=== PATIENT | male | born 1965 | race Two or more races ===

== ENCOUNTER → 2016-12-13 | Outpatient (CLI) | payer BC | END | disposition home or self-care (01) | LOC: PCVCCLINIC 12:00 | PROVIDERS: ATTEND Internal Medicine | DX: I25.10 Atherosclerotic heart disease of native coronary artery without angina pectoris (principal); E78.5 Hyperlipidemia, unspecified; R10.13 Epigastric pain; R74.8 Abnormal levels of other serum enzymes; E11.9 Type 2 diabetes mellitus without complications; I10 Essential (primary) hypertension; Z95.1 Presence of aortocoronary bypass graft; Z79.82 Long term (current) use of aspirin; Z79.84 Long term (current) use of oral hypoglycemic drugs; Z95.5 Presence of coronary angioplasty implant and graft; Z87.891 Personal history of nicotine dependence | CPT/HCPCS: G0463 ==

== ENCOUNTER → 2017-11-09 | Outpatient (CLI) | payer BC | END | disposition home or self-care (01) | LOC: PCVCIMAG 12:55 | DX: I10 Essential (primary) hypertension (principal); R09.89 Other specified symptoms and signs involving the circulatory and respiratory systems; I25.10 Atherosclerotic heart disease of native coronary artery without angina pectoris; R06.09 Other forms of dyspnea | CPT/HCPCS: 93325; 93351; 93880 ==

== ENCOUNTER → 2018-12-19 | Outpatient (CLI) | payer BC ==
--- NOTE | 2018-12-19 15:50 | PCVCIMAG ---
APPROVED REPORT Study performed: 12/19/2018 14:50:23 Exam: Stress Echocardiogram Indication: CAD s/p PCI, Chest pain , neck pain Patient Location: Echo lab Stress Nurse: Alma Oconnor RN Room #: 2 Status: routine Ht: 5 ft 7 in HR: 87 bpm BP: 122/84 mmHg Rhythm: NSR Medical History Medical History: CAD s/p stent, HTN, Hyperlipidemia Cardiac Risk Factors: HTN, Hyperlipidemia, DM Previous Cardiac Procedures: PCI Pretest Chest Pain Characteristics: No chest pain Exercise History: Physically active Procedure The patient underwent an Exercise Stress Test using the Karsten Protocol. Blood pressure, heart rate, and EKG were monitored. An Echocardiogram was performed by gear technician in four stages in quad fashion. At peak stress, four selected images were obtained and placed side by side with resting images for comparison. Stress Test Details Stress Test: Exercise stress testing was performed using a Karsten protocol. HR Resting HR: 87 bpmMax Heart Rate (APMHR): 167 bpm Max HR Achieved: 153 bpmTarget HR (85% APMHR): 141 bpm % of APMHR: 91 Recovery HR: 109 bpm HR response to stress: Normal HR response to stress BP Resting BP: 122/84 mmHg Max BP: 156/78 mmHg Recovery BP: 122/80 mmHg BP response to stress: Normal blood pressure response to stress. ECG Resting ECG: Sinus Rhythm, NSSTT changes Stress ECG: Sinus Rhythm ST Change: Non-ischemic Maximum ST Deviation: -0.80 mm Arrhythmia: rare pvcs Recovery ECG: Sinus Rhythm Recovery ST Change: Non-ischemic Recovery ST Deviation: -0.90 mm Recovery Arrhythmia: None Clinical Reason for Termination: Maximal effort Stress Symptoms: neck pain Exercise duration: 10 min 02 sec Highest Stage Achieved: Stage 4: 4.2 mph at 16% grade. Exercise capacity: 13.4 METs Overall Exercise Capacity for Age: Good Scale: Active Angina Score: Non-Limiting No complications. Stress ECG Conclusion The patient exercised according to the KARSTEN protocol for 10:02 mins; achieving a work level of 13.4 METS. The resting heart rate of 87 bpm carlos to a maximum heart rate of 153 bpm. This value represent 91% of the maximal, age-predicted heart rate. The resting blood pressure of 122/84 mmHg, carlos to a maximum blood pressure of 156/78 mmHg. The exercise test was stopped due to fatigue. Alan Treadmill Score is 10.0 which is Low risk. Pre-Stress Echo The resting Echocardiogram showed normal left ventricular contractility with an estimated Ejection Fraction of about 55-60%. Normal wall motion in all segments on baseline images. Post-Stress Echo The stress Echocardiogram showed normal left ventricular contractility with an estimated Ejection Fraction of about 65-70%. Normal augmentation of wall motion in all segments on post stress images. Clinical No clinical or ECG evidence for ischemia. Conclusion Clinical Response: Non-ischemic Exercise Capacity: Superior Stress ECG Response: Non-ischemic Stress Echo Images: Non-ischemic No clinical, EKG or echocardiographic evidence for ischemia. No echocardiographic evidence for exercise induced ischemia. Normal stress echocardiogram with maximal exercise stress. Normal color doppler. No regurgitation or stenosis present on pulmonic, mitral, tricuspid or aortic valves. 1. low risk study <Conclusion> No clinical, EKG or echocardiographic evidence for ischemia. No echocardiographic evidence for exercise induced ischemia. Normal stress echocardiogram with maximal exercise stress. Normal color doppler. No regurgitation or stenosis present on pulmonic, mitral, tricuspid or aortic valves. 1. low risk study
== END | disposition home or self-care (01) ==
LOC: PCVCIMAG 14:36
PROVIDERS: ATTEND Internal Medicine
DX: I25.10 Atherosclerotic heart disease of native coronary artery without angina pectoris (principal); I10 Essential (primary) hypertension; E78.5 Hyperlipidemia, unspecified; E11.9 Type 2 diabetes mellitus without complications
CPT/HCPCS: 93325; 93351